=== PATIENT | male | born 1950 | race Caucasian/White ===

== ENCOUNTER 2024-12-08 15:16 | Outpatient (CLI) | payer MEDICARE, OTHER ==
--- NOTE | 2024-12-11 01:42 | CONSULTATION ---
DATE OF CONSULTATION: 12/08/2024 DICTATING PHYSICIAN: Margie Navarrete M.S., [facility]-INSURANCE SALES REPRESENTATIVE MODIFIED BARIUM SWALLOW STUDY REPORT REFERRING PHYSICIAN: JUDY Garcia HISTORY OF PRESENT ILLNESS: The patient is a 74-year-old male and consents to this evaluation. In history obtained from the patient, the patient's who was present for this evaluation and medical records, the patient reports symptoms of dysphagia including difficulty with swallowing certain food items, especially softer items like bread and meats such as hamburger. He reports that they go slowly down his larynx and feel stuck. He notes that this has been occurring for about 3 months. The patient notes that he has difficulty with swallowing some of his medications and that one of his capsules can become stuck in his throat. He denies any coughing when eating and drinking. The patient reports running out of air when talking and having difficulty maintaining his volume. The patient was seen by ENT, Dr. Bentley in the past. 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 He gave this clinician permission to reach out to [facility] for the report from this doctor. The patient also reports medical history of cancer, in remission. CURRENT DIET: In terms of caffeine, the patient has 2-3 cups of coffee on a daily basis; however, in the last couple of days, he has decreased it to just 1 cup and he has soda once to twice daily. He does not utilize tobacco products and rarely drinks alcohol, perhaps once every 6 months. He rarely has chocolate. The patient has ice cream frequently, cheese moderately, and milk only in cereal. A typical breakfast consists of cereal with toast. He does not snack in the morning. Lunch may be sandwich or leftover. He eats dinner at 5 p.m., which may be noodles or hamburgers. He has ice cream at 6:30 and goes to bed between 8:00 and 9:00. MEDICATIONS: Metoprolol succinate ER 25 mg 1 tablet twice daily orally, Eliquis 5 mg 1 tablet twice daily orally, acyclovir 400 mg 1 tablet twice daily orally, atorvastatin 10 mg 1 tablet once daily orally, pantoprazole 40 mg 1 tablet every day in the morning orally, torsemide 10 mg 1 tablet once daily orally, spironolactone 25 mg 1 tablet once daily orally, magnesium glycinate 240 mg 2 tablets per day, [place] 16-inch 40 cm pre-lubricated straight droit/recto catheters cath 5 times a day, Senna-S 50 mg 1-3 pills once a day as needed, vitamin B12 1000 mcg 1 tablet once daily orally, vitamin D3 5000 International Units 2 pills in the evening, Tylenol 500 mg p.r.n., EpiPen Everette 0.3 mg p.r.n., cetirizine HCL 10 mg p.r.n., Refresh Optive lubricant eye medication preservative-free p.r.n., rosacea triple gel 30 mL p.r.n. PARAMETERS: The patient is seated in a lateral 90-degree view and administered the usual protocol of thin and nectar thick liquids, puree, and solid consistencies as well as self-regulated boluses of thin liquids from a cup. RESULTS: In the oral stage of the swallow, lingual strength was mildly reduced. There was a mild oral residue following the initial swallow of boluses. The patient spontaneously completed second swallows as needed. In the pharyngeal stage of the swallow, tongue base retraction was mild to moderately reduced. Swallow initiation was within functional limits. Anterior movement of the posterior pharyngeal wall was observed. Elevation of the hyothyroid complex was accomplished with full range of motion. There was a mild to moderate pharyngeal residue following the initial swallow of boluses for the majority of boluses; however, with the self-regulated bolus of thin liquid from a cup, that pharyngeal residue was moderate in level. PES opening was within functional limits. At no time was the patient noted to penetrate or aspirate any of the bolus sizes or consistencies. ANTERIOR, POSTERIOR VIEW: In the AP plane, the bolus split symmetrically between the piriform sinuses and there was no proximal movement of the bolus noted. There was, however, a point at the level of the mid sternum that appeared to be slightly narrowed as the bolus would start to catch slightly in that area and then slowly trickle down as if going through a funnel. The patient had indicated that he had a prior esophageal expansion in the past and so perhaps this was the area that was expanded in the past and it has narrowed again. IMPRESSION: The patient demonstrates what appears to be a mild oropharyngeal stage swallowing disorder characterized by reduced lingual strength and reduced tongue base retraction as well as mild to moderate pharyngeal residue. The patient also demonstrates lower vocal volume as he was asked to repeat several times in order to be properly heard by the clinician when communicating. DIAGNOSES: R13.12, oropharyngeal phase; K21.9, gastroesophageal reflux disease. PATIENT EDUCATION: Immediately following modified barium swallow study, the patient and his were able to view the results. The normal anatomy of the swallowing mechanism was revealed. The patient was able to see how the current status of the swallowing mechanism decreases his ability to swallow normally. He was educated on a recommendation for speech therapy to strengthen the muscles involved in swallowing and agreed to participate at this time. He also indicated that he would be very interested in pursuing voice therapy services as well and so this clinician will get in contact with the ENT that he had seen to determine if there was prior visualization of the vocal folds. RECOMMENDATIONS: It is recommended the patient receive concomitant speech/voice and swallowing therapy 1 time weekly for 12 weeks to improve the strength and range of motion of the swallowing musculature to ensure airway safety protection and prevent aspiration as well as to increase breath support. LONG-TERM GOALS: The patient will maintain adequate hydration/nutrition with optimum safety and efficiency of swallow function on p.o. intake without overt signs and symptoms of aspiration for the highest possible diet level. PROGNOSIS: Prognosis for the patient is good in terms of patient motivation and family support. FUNCTIONAL ORAL INTAKE: The FOIS was administered to establish and document a change in the functional eating activities of this patient over time. This is a 7-point scale with 1 indicating no oral intake and totally tube dependent and 7 indicating total oral intake with no restrictions. This patient received a 7 which indicates total oral intake with no restrictions. G-CODE: [id number]. Thank you very much for asking me to participate in the care of this kind patient. Should you have any questions regarding this evaluation or recommendations, please do not hesitate to contact me at [phone]. During this examination, 3:29 minutes of fluoroscopy time and 41.3 CAK mGy were utilized. Margie Navarrete M.S., [facility]-[employer]URANCE SALES REPRESENTATIVE TID: [id number] RECEIPT: [id number] CASEY/PATRICIA MONCADA
== END 2024-12-08 23:59 | disposition home or self-care (01) ==
LOC: RAD 15:16
PROVIDERS: ATTEND Physician Assistant Medical
DX: R13.12 Dysphagia, oropharyngeal phase (principal); K21.9 Gastro-esophageal reflux disease without esophagitis
CPT/HCPCS: 74230